=== PATIENT | male | born 1990 | race Two or more races ===

== ENCOUNTER 2019-03-21 10:27 | Emergency (ER) | payer SELFPAY ==
[~2019-03-21] VITALS: Ht 160 cm; Wt 85.0 kg
[2019-03-21 10:45] VITALS: BP 160/90
[2019-03-21] MEDS: NAPROXEN 500 MG TABLET PO STA (11:34)
[2019-03-21] MEDS: diazePAM 5 MG TABLET PO ONE (11:34)
[2019-03-21] MEDS: HYDROcodone/APAP 5/325MG 1 TAB TABLET PO ONE (11:34)
[2019-03-21] MEDS: predniSONE 20 MG TABLET PO ONE (11:35)
[2019-03-21] MEDS ORDERED: PRED-220 PO (11:40)
[2019-03-21] MEDS ORDERED: DIAZ5TAB PO (11:40)
[2019-03-21] MEDS ORDERED: NAPR-514 PO (11:40)
--- NOTE | 2019-03-21 11:40 | PHYS DOC ---
Past Medical History Past Medical History: No Pertinent History Past Surgical History: No Surgical History Alcohol Use: None Adult General Chief Complaint Chief Complaint: Neck Pain HPI HPI Patient is a 29 year old male who presents to the ED today complaining of 9 out of 10 sharp constant left lateral neck pain that he noted this morning when he woke up. Patient denies any injury. Reports pain is worse on range of motion to the left side. Patient denies taking anything specifically to relieve his pain. Denies any pain radiating to the chest. Denies any chest pain or shortness of breath. Interpretation is provided by family Review of Systems Review of Systems Constitutional: Denies fever or chills [] Eyes: Denies change in visual acuity, redness, or eye pain [] HENT: Denies nasal congestion or sore throat [] Respiratory: Denies cough or shortness of breath [] Cardiovascular: No additional information not addressed in HPI [] GI: Denies abdominal pain, nausea, vomiting, bloody stools or diarrhea [] : Denies dysuria or hematuria [] Musculoskeletal: Reports left lateral neck pain Integument: Denies rash or skin lesions [] Neurologic: Denies headache, focal weakness or sensory changes [] All other systems were reviewed and found to be within normal limits, except as documented in this note. Current Medications Current Medications Current Medications Medications (Trade) Dose Ordered Sig/Divya Start Time Stop Time Status Last Admin Dose Admin Acetaminophen/ Hydrocodone Bitart (Lortab 5/325) 1 tab 1X ONCE 03/21/19 11:30 03/21/19 11:31 DC Diazepam (Valium) 5 mg 1X ONCE 03/21/19 11:30 03/21/19 11:31 DC Naproxen (Naprosyn) 500 mg 1X STAT 03/21/19 11:28 03/21/19 11:30 DC Prednisone (Prednisone) 60 mg 1X ONCE 03/21/19 11:30 03/21/19 11:31 DC Allergies Allergies Allergies Coded Allergies Type Severity Reaction Last Updated Verified No Known Drug Allergies 03/21/19 No Physical Exam Physical Exam Constitutional: Well developed, well nourished, no acute distress, non-toxic appearance. [] HENT: Normocephalic, atraumatic, bilateral external ears normal, oropharynx moist, no oral exudates, nose normal. [] Eyes: PERRLA, EOMI, conjunctiva normal, no discharge. [] Neck: diffuse paraspinal muscle tenderness in the left lateral cervical spine, limited range of motion to the left lateral cervical spine, full range of motion to the right cervical spine, no midline cervical spine tenderness supple, no stridor. [] Cardiovascular:Heart rate regular rhythm, no murmur [] Lungs & Thorax: Bilateral breath sounds clear to auscultation [] Abdomen: Bowel sounds normal, soft, no tenderness, no masses, no pulsatile masses. [] Skin: Warm, dry, no erythema, no rash. [] Back: No tenderness, no CVA tenderness. [] Extremities: No tenderness, no cyanosis, no clubbing, ROM intact, no edema. [] Neurologic: Alert and oriented X 3, normal motor function, normal sensory function, no focal deficits noted. [] Psychologic: Affect normal, judgement normal, mood normal. [] Current Patient Data Vital Signs Vital Signs Date Time Temp Pulse Resp B/P (MAP) Pulse Ox O2 Delivery O2 Flow Rate FiO2 03/21/19 10:45 97.8 82 20 160/90 (113) 97 Room Air 97.8 EKG EKG [] Radiology/Procedures Radiology/Procedures [] Course & Med Decision Making Course & Med Decision Making Pertinent Labs and Imaging studies reviewed. (See chart for details) This is a 29-year-old male patient with torticollis. Discussed measures to manage this condition. Discharged to home. Follow-up with PCP in 1-2 weeks. Dragon Disclaimer Dragon Disclaimer This electronic medical record was generated, in whole or in part, using a voice recognition dictation system. Departure Departure Impression: Primary Impression: Torticollis, acute Disposition: 01 HOME, SELF-CARE Condition: STABLE Referrals: NO PCP (PCP) follow up with your doctor in 1-2 weeks Patient Instructions: Torticollis, Acute Additional Instructions: You were seen for acute pain. Apply a heating pad to neck. Follow-up with the primary care doctor in 1-2 weeks Scripts Naproxen (NAPROXEN) 500 Mg Tablet 1 TAB PO BID for pain, #20 TAB 0 Refills Prov: YISEL RODRIGUEZ [employer] TECHNICIAN 03/21/19 Prednisone (PREDNISONE ) 10 Mg Tablet 10 MG PO UD for PREDNISONE TAPER, #39 TAB 0 Refills Take 3 tablets by mouth twice a day for 3 days, then take 2 tablets by mouth twice a day for 3 days, then take 1 tablet by mouth twice a day for 3 days, then take 1 tablet by mouth daily x 3 days, then stop. Prov: YISEL RODRIGUEZ APRN 03/21/19 Diazepam (VALIUM) 5 Mg Tablet 5 MG PO TID, #20 TAB Prov: YISEL RODRIGUEZ APRN 03/21/19 YISEL RODRIGUEZ APRN Mar 21, 2019 11:40
== END 2019-03-21 11:54 | disposition home or self-care (01) ==
LOC: ER 10:27
DX: M43.6 Torticollis (principal); M54.2 Cervicalgia
CPT/HCPCS: 99284; J7512